=== PATIENT | female | born 1975 ===

== ENCOUNTER → 2022-11-15 14:41 | Outpatient (ROUT) | payer OTHER, SELFPAY ==
[2022-11-15 14:51] LABS: Add Manual Diff / Slide Review NO; Basophils Absolute Auto 100 /uL (0-100); Basophils Percent Auto 0.7 % (0-2); Eosinophils Absolute Auto 100 /uL (0-450); Eosinophils Percent Auto 1.6 % (2-4); Hematocrit 40.2 % (36-46); Lymphocytes Absolute Auto 2800 /uL (1100-4500); Lymphocytes Percent Auto 37.6 % (25-40); Mean Corpuscular HGB Conc 34.8 % (30-36); Mean Corpuscular Hemoglobin 29.5 PG (26-34); Mean Corpuscular Volume 84.6 fL (80-100); Monocytes Absolute Auto 600 /uL (0-900); Monocytes Percent Auto 7.5 % (3-14); Neutrophils Absolute Auto 3900 /uL (1500-7000); Neutrophils Percent Auto 52.6 % (50-75); Platelet Count 335 X10^3/uL (150-400); Red Blood Cell Count 4.75 X10^6/uL (4.0-5.2); Red Cell Distribution Width 13.3 % (11.6-14.8); White Blood Cell Count 7.5 X10^3/uL (4.5-11.0)
[2022-11-15 14:57] LABS: Iron 97 ug/dL (37-170)
[2022-11-15 14:59] LABS: Alanine Aminotransferase 45 IU/L (<35); Albumin 4.7 g/dL (3.5-5.0); Albumin Globulin Ratio 1.7 (1.0-2.8); Alkaline Phosphatase 77 U/L (38-126); Aspartate Aminotransferase 37 IU/L (14-36); BUN Creatinine Ratio 20.3 (6-22); Bilirubin Total 0.6 mg/dL (0.2-1.3); Blood Urea Nitrogen 12 mg/dL (7-17); Calcium 10.2 mg/dL (8.4-10.2); Carbon Dioxide 25 mmol/L (22-32); Chloride 101 mmol/L (98-107); Estimated Glomerular Filt Rate > 60 mL/min (>60); Globulin 2.8 g/dL (1.7-4.1); Glucose 86 mg/dL (70-100); HEMOLYSIS 50 (0-50); Potassium 4.1 mmol/L (3.4-5.1); Sodium 136 mmol/L (137-145); Total Protein 7.5 g/dL (6.3-8.2)
[2022-11-15 15:02] LABS: HEMOLYSIS 51 (0-50)
[2022-11-15 15:08] LABS: Percent Iron Saturation 27 % (15-50); Total Iron Binding Capacity 360 ug/dL (265-497); Transferrin 282 mg/dL (206-381)
[2022-11-15 15:30] LABS: Thyroid Stimulating Hormone 2.03 uIU/mL (0.47-4.68)
[2022-11-15 16:04] LABS: Folate 13.9 ng/mL (2.76-20.0); Vitamin B12 518 pg/mL (239-931)
[2022-11-15 16:47] LABS: Follicle Stimulating Hormone 75.2 mIU/mL
[2022-11-15 16:49] LABS: Vitamin D 25 Hydroxy (D3) 44.7 ng/mL (30.0-100.0)
[2022-11-16 03:12] LABS: Labcorp Hemoglobin (Hb) A1c 6.1 % (4.8-5.6)
== END ==
PROVIDERS: Visit Provider Family Medicine
DX: Z00.00 Encounter for general adult medical examination without abnormal findings (principal); N91.2 Amenorrhea, unspecified; R53.83 Other fatigue
CPT/HCPCS: 80053; 82306; 82607; 82746; 83001; 83036; 83540; 83550; 84443; 85025